=== PATIENT | female | born 1940 | race Caucasian/White ===

== ENCOUNTER → 2017-03-12 | Outpatient (CLI) | payer MEDICARE ==
[~2017-03-12] MED LIST: ALBU0.63 NEB; ASPI-621 PO; ATOR20TA9 PO; BUDE10.2 INH; DOXY100T PO; GUAI200T3 PO; IPRA3AMP NPPB; LISI-167 PO; METO25TA35 PO; PRED10TA PO; SIMV10TA3 PO; TICA90TA PO; TIOT18CA INH
== END | disposition home or self-care (01) ==
LOC: CFH 11:23
PROVIDERS: ATTEND Internal Medicine
DX: R91.1 Solitary pulmonary nodule (principal); J43.2 Centrilobular emphysema; J84.10 Pulmonary fibrosis, unspecified
CPT/HCPCS: 71250